=== PATIENT | female | born 1950 ===

== ENCOUNTER 2018-10-09 09:10 | Outpatient (CLI) | payer MEDICARE, OTHER | END 2018-10-09 09:11 | disposition home or self-care (01) | LOC: C.MAMMO 09:11 ==

== ENCOUNTER 2018-10-11 10:08 | Outpatient (CLI) | payer MEDICARE, OTHER | END 2018-10-11 10:09 | disposition home or self-care (01) | LOC: C.RADIC 10:08 ==

== ENCOUNTER 2018-10-12 07:48 | Outpatient (CLI) | payer MEDICARE, OTHER | END 2018-10-12 07:49 | disposition home or self-care (01) | LOC: C.CTH 07:48 | DX: R05 Cough (principal); F17.200 Nicotine dependence, unspecified, uncomplicated ==

== ENCOUNTER 2018-11-20 06:21 | Day surgery (SDC) | payer MEDICARE, OTHER ==
[2018-11-20 06:55] VITALS: BMI 25.1
[2018-11-20] MEDS ORDERED: Propofol 10 mg/ml Inj (20 ML) ONE (08:14)
[2018-11-20] MEDS ORDERED: Lidocaine Hydrochloride 5 ML INJ ONE (08:15)
--- NOTE | 2018-11-20 08:23 | CP.SDSHP ---
Same Day Surgery H & P - History Proposed Procedure: EGD Pre-Op Diagnosis: Dysphagia - Previous Medical/Surgical History Cardiac: Hypertension Misc: Other Comments: Hyperlipidemia Previous Surgical History: C section - Allergies Allergies: Allergies No Known Allergies Allergy (Verified 11/17/18 09:20) - Current Medications Current Medications: See reconciliation sheet - Physical Exam General Appearance: WD WN female in NAD Vital Signs: Vital Signs 11/20/18 06:40 Temperature 97.8 F Pulse Rate 74 Respiratory 19 Rate Blood Pressure 131/73 O2 Sat by Pulse 99 Oximetry Mental Status: Alert & Oriented x3 Neuro: WNL Heart: WNL Lungs: WNL GI: WNL - {Optional Preform as Required} Abdomen: WNL - Impression Impression: Dysphagia Pt. Evaluated Today:Candidate for Anesthesia & Procedure: Yes - Date & Time Date: 11/20/18 Time: 08:23 Short Stay Discharge - Short Stay Discharge Admitting Diagnosis/Reason for Visit: OTHER DYSPHAGIA Disposition: HOME/ ROUTINE
[2018-11-20 08:53] VITALS: TEMP 97.5
[2018-11-20 09:19] VITALS: O2SAT 100
[2018-11-20 10:00] VITALS: BP 143/73; PULSE 86; RESP 18
[2018-11-20 10:07] LABS: EOS # 0.1 K/uL (0.0-0.7); EOS % 2.7 % (0.0-4.0); HEMOGLOBIN 14.8 g/dL (11.0-16.0); LYMPH # 1.1 K/uL (1.0-4.3); LYMPH % 23.2 % (20.0-40.0); MEAN CELL VOLUME 89.7 fL (81.0-99.0); MEAN CORPUSCULAR HEMOGLOBIN 31.1 pg (27.0-31.0); MEAN CORPUSCULAR HGB CONC 34.7 g/dL (33.0-37.0); MEAN PLATELET VOLUME 9.2 fL (7.2-11.7); MONO # 0.2 K/uL (0.0-0.8); MONO % 4.3 % (0.0-10.0); NEUT # 3.4 K/uL (1.8-7.0); NEUT % 68.8 % (50.0-75.0); NRBC % 0.2 % (0.0-2.0); RBC 4.76 Mil/uL (3.80-5.20); WHITE BLOOD COUNT 4.9 K/uL (4.8-10.8)
[2018-11-20 10:21] LABS: ALB/GLOB RATIO 1.9 (1.0-2.1); ALBUMIN 4.5 g/dL (3.5-5.0); ALT/SGPT 14 U/L (9-52); AMYLASE 66 U/L (30-110); AST/SGOT 19 U/L (14-36); BLOOD UREA NITROGEN 13 mg/dL (7-17); CALCIUM 9.5 mg/dl (8.6-10.4); GFR NON-AFRICAN AMERICAN > 60
[2018-11-20 12:14] LABS: HEPATITIS B SURFACE AG Negative (NEGATIVE)
[2018-11-20 12:20] LABS: HEPATITIS A IGM NEGATIVE (NEGATIVE); HEPATITIS B CORE AB NEGATIVE (NEGATIVE)
[2018-11-20 12:31] LABS: HEPATITIS C ANTIBODY NEGATIVE (NEGATIVE)
== END 2018-11-20 09:53 | disposition home or self-care (01) ==
LOC: C.ENDO 06:21
PROVIDERS: ATTEND Internal Medicine Gastroenterology
DX: K21.0 Gastro-esophageal reflux disease with esophagitis (principal); K29.50 Unspecified chronic gastritis without bleeding; K44.9 Diaphragmatic hernia without obstruction or gangrene; K31.4 Gastric diverticulum; I10 Essential (primary) hypertension
CPT/HCPCS: 36415; 43239; 80053; 80074; 82150; 85025; 86592; 86703; 86706; 88305; 88312; 88313; 88342; J2704